=== PATIENT | male | born 1965 | race Caucasian/White ===

== ENCOUNTER 2018-08-13 21:17 | Emergency (ER) | payer OTHER ==
[~2018-08-13] VITALS: Ht 170.2 cm; Wt 84.4 kg
[2018-08-13] MEDS ORDERED: ASPI-605 PO (21:36)
--- NOTE | 2018-08-13 21:36 | NUR ---
PT BIB FAMILY MEMBER. RESPONSIVE TO VERBAL AND TACTILE STIMULI. PT C/O PUNCTURE WOUND ON L PEREZ FROM ATTEMPTING TO JUMP OVER HIS FENCE AT HOME. PT PRESENTS WITH A PUNCTUER WOUND, PAIN /. PT DENIES C/P, SOB, N/V, HEADACHE. ER MD AT BEDSIDE.
[2018-08-13] MEDS ORDERED: TDAP DIPH,PERTUSS,TET VAC/PF 0.5 ML DISP.SYRIN IM ONE (21:40)
[2018-08-13] MEDS ORDERED: MORPHINE SULFATE 4 MG/1 ML DISP.SYRIN ONE (21:40)
[2018-08-13] MEDS: MORPHINE SULFATE 4 MG/1 ML DISP.SYRIN IM ONE (21:51)
[2018-08-13] MEDS: TDAP DIPH,PERTUSS,TET VAC/PF 0.5 ML DISP.SYRIN IM ONE (21:52)
--- NOTE | 2018-08-13 22:34 | NUR ---
DR. DE SANTIAGO AT BEDSIDE FOR PT SUTURE.
--- NOTE | 2018-08-13 22:50 | NUR ---
Patient discharged to home in stable conditon. Written and verbal after care instructions given. Patient verbalizes understanding of instructions. PT SELF-AMBULATED WITHOUT DIFFICULTY. ALL BELONGINGS WITH PT. PT D/C WITH PRESCRIPTION. PT WILL BE TAKEN HOME BY FAMILY IN PRIVATE VEHICLE.
[2018-08-13 22:51] VITALS: BP 120/72
== END 2018-08-13 22:52 | disposition home or self-care (01) ==
LOC: ER 21:19
DX: S81.812A Laceration without foreign body, left lower leg, initial encounter (principal); W26.8XXA Contact with other sharp object(s), not elsewhere classified, initial encounter; Y93.89 Activity, other specified; Y92.89 Other specified places as the place of occurrence of the external cause; Y99.8 Other external cause status
CPT/HCPCS: 90715; A4217; A4663; J2270; J3490

== ENCOUNTER 2020-04-10 00:45 | Emergency (ER) | payer OTHER ==
[~2020-04-10] VITALS: Ht 167.6 cm; Wt 85.3 kg
[~2020-04-10 00:45] MED LIST: ASPI-605 PO
--- NOTE | 2020-04-10 00:51 | NUR ---
Patient ambulated to ER, accompanied by son. AO x 4. Brought himself in for chest pain 1 week [employer], that has been coming and going, per patient it worsens during exertion. No other complaints. Breathing is even and labored. Not in active distress. No GI/ symptoms. No muscoloskeletal issues. Skin appears intact. ECG done. Fall and safety precautions maintained.
--- NOTE | 2020-04-10 00:53 | NUR ---
Dr. Reyes at bedside for MSE.
[2020-04-10] MEDS ORDERED: [UNRECOGNIZED DRUG - REMARK] (00:58)
[2020-04-10] MEDS ORDERED: ASPIRIN 81 MG TAB.CHEW PO ONE (01:15)
[2020-04-10] MEDS ORDERED: NITROGLYCERIN OINT 1 GM PACKET TP ONE ×2 (01:15→01:19)
[2020-04-10] MEDS ORDERED: ASPIRIN EC 81 MG TABLET.DR PO ONE (01:19)
[2020-04-10 01:24] LABS: BASOPHILS % (AUTO) 0.7 % (0.0-2.0); EOSINOPHILS # (AUTO) 0.2 K/uL (0.0-0.7); EOSINOPHILS % (AUTO) 2.5 % (0.0-7.0); HEMATOCRIT 40.9 % (36.7-47.1); HEMOGLOBIN 14.5 g/dL (12.5-16.3); LYMPHOCYTES # (AUTO) 2.3 K/uL (20.0-40.0); LYMPHOCYTES % (AUTO) 37.8 % (20.5-51.5); MEAN CORPUSCULAR HEMOGLOBIN 31.7 uug (23.8-33.4); MEAN CORPUSCULAR HGB CONC 35 g/dL (32.5-36.3); MEAN CORPUSCULAR VOLUME 89.8 fL (73.0-96.2); MONOCYTES # (AUTO) 0.5 K/uL (2.0-10.0); MONOCYTES % (AUTO) 7.6 % (0.0-11.0); NEUTROPHILS # (AUTO) 3.2 K/uL (1.8-8.9); NEUTROPHILS % (AUTO) 51.4 % (38.5-71.5); PLATELET COUNT (AUTO) 179 K/uL (152-348); RED BLOOD CELL COUNT(AUTO) 4.55 MIL/uL (4.06-5.63); WHITE BLOOD COUNT (AUTO) 6.2 K/uL (3.6-10.2)
--- NOTE | 2020-04-10 01:26 | NUR ---
All MD orders noted and carried out. Pt tolerated PO meds well. Tele monitored at this time, Normal Sinus Rhythm at 72. Pt stated that he still has mild aches, but all VS stable at this time. Patient placed on observation. Side rails up x 2. Bed locked in position. Will continue to monitor.
[2020-04-10 01:33] LABS: CREATININE 1.1 mg/dL (0.6-1.3); POTASSIUM 3.9 mmol/L (3.5-5.1)
[2020-04-10 01:50] LABS: BILIRUBIN,DIRECT 0.1 mg/dL (0.0-0.2); BILIRUBIN,TOTAL 0.4 mg/dL (0.2-1.0); TOTAL PROTEIN, SERUM 7.2 g/dL (6.4-8.2)
--- NOTE | 2020-04-10 03:38 | NUR ---
Patient remains resting at this time, warm blankets provided and placed on low sanchez's position. Voided 1x. VS stable. Normal sinus rhythm at this time @72. Denies chest pain or shortness of breath. No other symptoms noted. Fall and safety precautions maintained.
--- NOTE | 2020-04-10 04:47 | NUR ---
Pt is awake, and verbally responsive. States that he still has some aches, here and there, on his chest, but tolerable. ECG shows NSR/Sinus Julian 59-65 bpm. Troponin is back, MD notified.
--- NOTE | 2020-04-10 05:07 | NUR ---
Patient discharged to home in stable condition. Written and verbal after care instructions given. Stressed follow up or return to ER for worsening s/s. IV saline lock removed. Pressure and 4x4 gauze applied to site. No bleeding noted. Follow up with cardiology stressed per MD's referral. Patient verbalizes understanding of instructions. Ambulated out of ER in steady gait.
[2020-04-10 05:10] VITALS: BP 107/66
== END 2020-04-10 05:10 | disposition home or self-care (01) ==
LOC: ER 00:48
DX: R07.9 Chest pain, unspecified (principal); Z79.82 Long term (current) use of aspirin; E78.00 Pure hypercholesterolemia, unspecified; Z79.899 Other long term (current) drug therapy
CPT/HCPCS: 36415; 70030-TC; 71045; 85025; 85730; 93005; A4663

== ENCOUNTER 2025-01-21 16:28 | Emergency (ER) | payer OTHER ==
[~2025-01-21] VITALS: Ht 175.3 cm; Wt 84.4 kg
[~2025-01-21 16:28] MED LIST changes: +[UNRECOGNIZED DRUG - REMARK]
[2025-01-21] MEDS ORDERED: SIMV-46 PO (16:40)
[2025-01-21 17:00] LABS: BASOPHILS % (AUTO) 0.6 % (0.0-2.0); EOSINOPHILS # (AUTO) 0.1 K/uL (0.0-0.7); EOSINOPHILS % (AUTO) 0.9 % (0.0-7.0); HEMATOCRIT 41.7 % (36.7-47.1); HEMOGLOBIN 14.6 g/dL (12.5-16.3); LYMPHOCYTES # (AUTO) 1.6 K/uL (0.8-4.8); MEAN CORPUSCULAR HEMOGLOBIN 31.8 uug (23.8-33.4); MEAN CORPUSCULAR HGB CONC 35 g/dL (32.5-36.3); MEAN CORPUSCULAR VOLUME 90.8 fL (73.0-96.2); MONOCYTES # (AUTO) 0.5 K/uL (0.1-1.30); MONOCYTES % (AUTO) 7.1 % (0.0-11.0); NEUTROPHILS # (AUTO) 4.3 K/uL (1.8-8.9); NEUTROPHILS % (AUTO) 66.4 % (38.5-71.5); PLATELET COUNT (AUTO) 151 K/uL (152-348); RED CELL DISTRIBUTION WIDTH 12.9 % (12.1-16.2); WHITE BLOOD COUNT (AUTO) 6.4 K/uL (3.6-10.2)
[2025-01-21 17:01] LABS: DIFFERENTIAL COMMENT 1
[2025-01-21 17:09] LABS: CALCIUM 9.2 mg/dL (8.5-10.1); CARBON DIOXIDE 26 mmol/L (21-32); CHLORIDE 104 mmol/L (98-107); CREATININE 0.8 mg/dL (0.6-1.3); GLUCOSE 103 mg/dL (74-106); POTASSIUM 3.9 mmol/L (3.5-5.1); SODIUM SERUM 141 mmol/L (136-145); UREA NITROGEN, BLOOD 18 mg/dL (7-18)
[2025-01-21 17:23] LABS: NT-PRO BNP 29 pg/mL (0-125)
[2025-01-21 17:52] LABS: MAGNESIUM 2.2 mg/dL (1.8-2.4); PHOSPHOROUS 3.8 mg/dL (2.5-4.9)
[2025-01-21 18:03] LABS: THYROID STIMULATING HORMONE 1.74 mIU/mL (0.358-3.740)
[2025-01-21 19:16] VITALS: BP 130/76; TEMP 98.1; O2SAT 98
== END 2025-01-21 18:50 | disposition left against medical advice (07) ==
LOC: ER 16:28
DX: R07.89 Other chest pain (principal); R00.2 Palpitations; R20.2 Paresthesia of skin; R55 Syncope and collapse; R53.83 Other fatigue; R42 Dizziness and giddiness; R23.2 Flushing; R06.00 Dyspnea, unspecified; R11.0 Nausea; E78.5 Hyperlipidemia, unspecified; F17.200 Nicotine dependence, unspecified, uncomplicated; Z79.82 Long term (current) use of aspirin; Z79.899 Other long term (current) drug therapy
CPT/HCPCS: 36415; 71045; 83735; 84100; 84443; 84484; 85025; A4606; A4663